=== PATIENT | male | born 1980 | race Caucasian/White ===

== ENCOUNTER 2018-05-25 13:34 | Emergency (ER) | payer MEDICAID ==
[~2018-05-25] VITALS: Ht 177.8 cm; Wt 77.6 kg
[2018-05-25 13:40] VITALS: Ht 177.8 cm; Wt 77.6 kg
[2018-05-25 14:32] LABS: microscopic required? NO
[2018-05-25 14:41] LABS: UA SPECIFIC GRAVITY 1.025 (1.005-1.035); urine erythrocyte NEGATIVE (NEGATIVE)
[2018-05-25 14:45] LABS: CALCIUM 8.3 mg/dL (8.5-10.1); CARBON DIOXIDE 28.3 mmol/L (21-32); CHLORIDE SERUM 105 mmol/L (98-107); GFR1 > 60 mL/min; GLUCOSE SERUM 105 mg/dL (74-106); POTASSIUM SERUM 3.9 mmol/L (3.5-5.1); SODIUM SERUM 140 mmol/L (136-145)
[2018-05-25 14:51] LABS: ALBUMIN 3.5 g/dL (3.4-5.0); ALKALINE PHOSPHATASE 59 U/L (46-116); ALT/SGPT 34 U/L (16-63); AST/SGOT 25 U/L (15-37); BILIRUBIN TOTAL 0.5 mg/dL (0.20-1.00); TOTAL PROTEIN, SERUM 7.1 g/dL (6.4-8.2)
[2018-05-25 15:02] LABS: BASOPHIL % 0.2 % (0-2); PLATELET COUNT 201 x10^3mcL (130-400); RED CELL DISTRIBUTION WIDTH 13.9 % (11.5-14.5)
[2018-05-25 16:08] VITALS: BP 115/57
== END 2018-05-25 16:36 | disposition home or self-care (01) ==
LOC: ED 13:34
PROVIDERS: Emergency Medicine Emergency Medical Services
DX: N23 Unspecified renal colic (principal)
CPT/HCPCS: J1956; J2270; Q0092